=== PATIENT | female | born 1965 | race Caucasian/White ===

== ENCOUNTER 2018-09-08 15:18 | Observation (INO) ==
[2018-09-08] MEDS ORDERED: SODIUM CHLORIDE 0.9% INJ PRN (17:28)
[2018-09-08 17:58] LABS: BASO# 0.03 X1000 (0.0-0.2); BASO% 0.4 % (0.0-0.8); EOS# 0.34 X1000 (0.0-0.7); EOS% 4.4 % (0.0-10.0); HEMATOCRIT 34.3 % (37.0-47.0); HEMOGLOBIN 10.8 g/dL (12.0-16.0); LYMPH# 1.81 X1000 (1.2-3.4); LYMPH% 23.4 % (20.5-51.1); MCH 26.7 PG (27-31); MCHC 31.5 g/dL (33-37); MCV 84.9 FL (81-99); MONO# 0.55 X1000 (0.11-0.59); MONO% 7.1 % (1.7-9.3); MPV 8.9 FL (7.4-10.4); NEUT% 64.7 % (42.2-75.2); PLT 222 X1000 (130-400); RBC 4.04 XMIL (4.2-5.4); WBC 7.73 X1000 (4.8-10.8)
[2018-09-08 18:16] LABS: AGAP 15; ALB/GLOB RATIO 1.7; ALBUMIN 4.1 g/dL (3.5-5.0); ALKALINE PHOSPHATASE 89 U/L (32-104); AMYLASE 46 U/L (20-200); BUN 18 mg/dL (8-22); CHLORIDE 105 mmol/L (98-107); COSMO 285; CREATININE 0.7 mg/dL (0.5-0.9); ESTIMATED GFR > 60; GLUCOSE 105 mg/dL (70-104); GOT 46 U/L (10-30); GPT 26 U/L (10-36); MAGNESIUM 1.8 mg/dL (1.5-2.7); POTASSIUM 3.3 mmol/L (3.5-5.1); SODIUM 142 mmol/L (136-145); TCO2 22 mmol/L (25-35); TOTAL BILIRUBIN 0.26 mg/dL (0.20-1.00); TOTAL PROTEIN 6.5 g/dL (6.3-8.3)
[2018-09-08] MEDS: NS 1,000 ML IV SCH (18:49)
[2018-09-08] MEDS: PROTONIX IV SCH (18:50)
[2018-09-08] MEDS: DEMEROL IV PRN (18:52)
[2018-09-08] MEDS: PHENERGAN IV PRN (18:52)
[2018-09-08] MEDS ORDERED: VENTOLIN HFA INH PRN (21:13)
--- NOTE | 2018-09-08 21:49 | HISTORY AND PHYSICAL ---
CHIEF COMPLAINT: Two-week history of nausea, vomiting, abdominal pain, diarrhea. HISTORY OF PRESENT ILLNESS: She is a 52-year-old white female who came to my office after 1 year, basically came in with above symptoms. The patient was profoundly dehydrated, unable to get an IV. Basically admitted to the hospital for IV fluids and IV PPI. Apparently, patient called Dr. Waldron, and he said go to the emergency room. PAST MEDICAL HISTORY: Interstitial cystitis, metabolic syndrome, seizure, migraine headaches, GERD, osteoarthritis, B12 deficiency, hypothyroidism, allergic rhinitis. PAST SURGICAL HISTORY: Gastric sleeve, sinus surgery, tonsillectomy, appendectomy, cholecystectomy, complete hysterectomy, bilateral hip replacement, bilateral knee arthroplasty. MEDICINES: Listed in my office: Singulair 10 mg daily, Prevacid 30 daily, Keppra 1000 p.o. b.i.d., trazodone 150 at bedtime, ProAir as needed, Klonopin 0.5 daily, Spencer Thyroid 90 mg daily, Lexapro 20 daily, Symbicort 160/4.5 daily, B12 shots as needed, Aimovig 70 mg once a month for migraine prophylaxis. ALLERGIES: Bactrim and penicillin. SOCIAL HISTORY: for 38 years, 2 kids. Lives in [place]. 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 FAMILY HISTORY: Father is 75 years old, had a stroke. Mom is 69 with diabetes. Siblings: 3 sisters with joint disease and asthma. HEALTH MAINTENANCE: The patient never seen in my office since last year. COLL[facility] TURNER by Dr. Shelton. Colonoscopy in [address] Waldron. She had a complete hysterectomy, health maintenance. REVIEW OF SYSTEMS: HEENT: No headache. No vision problem. No earache. No sore throat. Neck: No goiter. No lymphadenopathy. No bruit. Cardiopulmonary: No chest pain, shortness of breath, PND, orthopnea. Gastrointestinal: Upper abdominal pain, nausea, vomiting, diarrhea. Genitourinary: No history of hesitancy, dysuria, frequency. Musculoskeletal: No swelling of legs. Chronic joint pains. Neurologic: No focal symptoms or weakness. PHYSICAL EXAMINATION: VITAL SIGNS: Temperature is 97.7 degrees, pulse is 70, blood pressure 115/57, 5 feet 7, 210 pounds. HEENT: Atraumatic, normocephalic. Pupils equal, reactive to light. TMs are normal. Nose and throat within normal limits. NECK: Supple. No lymphadenopathy. No goiter. CHEST: Bilateral air entry. CARDIOVASCULAR: Heart sounds are regular. ABDOMEN: Belly is soft, obese, nontender. Good bowel sounds and no signs of peritonitis. No neurological deficits. INVESTIGATIONS: CBC: White cell count 7.7, hematocrit 34, platelets 222,000. SMA 7: Sodium 142, potassium 3.3, chloride 105, glucose of 105. LFTs were normal. Amylase was normal. ASSESSMENT AND PLAN: 1. A 52-year-old white female admitted to the hospital with observation, nausea, vomiting, diarrhea for 2 weeks, dehydration by clinical exam, IV fluids, Demerol and Zofran and hypokalemia, replace the potassium. 2. Reconcile home medications, and we will follow up. If things will not get better, the patient is going to see Dr. Waldron. cc: Michele Ibrahim MD MTDD
[2018-09-08] MEDS: POTASSIUM CHLORIDE 20 MEQ/SWI 20 MEQ/100 ML IVPB IV SCH (22:24)
[2018-09-08] MEDS: DESYREL PO SCH (22:55)
[2018-09-08] MEDS: CARAFATE PO SCH (22:56)
[2018-09-08] MEDS: KEPPRA PO SCH (22:56)
[2018-09-08] MEDS: NEURONTIN PO SCH (22:56)
[2018-09-09] MEDS: LEVSIN-SL SL SCH ×6 (02:06→21:37)
[2018-09-09] MEDS: POTASSIUM CHLORIDE 20 MEQ/SWI 20 MEQ/100 ML IVPB IV SCH (02:07)
[2018-09-09] MEDS: PHENERGAN IV PRN ×4 (02:07→19:02)
[2018-09-09] MEDS: DEMEROL IV PRN ×5 (02:08→21:38)
[2018-09-09] MEDS: SODIUM CHLORIDE 0.9% INJ SCH ×3 (02:16→17:04)
[2018-09-09] MEDS: NS 1,000 ML IV SCH (05:04)
[2018-09-09] MEDS ORDERED: THYROID PO SCH (07:00)
[2018-09-09] MEDS ORDERED: SYMBICORT 160/4.5 MICROGM INHALER INH SCH (07:30)
[2018-09-09] MEDS: LEXAPRO PO SCH (09:11)
[2018-09-09] MEDS: NEURONTIN PO SCH ×3 (09:11→21:37)
[2018-09-09] MEDS: CARAFATE PO SCH ×2 (09:11→21:37)
[2018-09-09] MEDS: KEPPRA PO SCH ×2 (09:11→21:37)
[2018-09-09] MEDS: ESTRACE PO SCH (09:12)
[2018-09-09] MEDS: SINGULAIR PO SCH (09:12)
[2018-09-09] MEDS: KLONOPIN PO SCH ×2 (09:12→21:37)
--- NOTE | 2018-09-09 16:52 | PROGRESS NOTE ---
DATE: 09/09/2018 SUBJECTIVE: The patient complains of diarrhea, nausea/vomiting, abdominal pain. Symptoms are out of proportion. Complains of dysuria, interstitial cystitis acting up. OBJECTIVE: Temperature is 97 degrees, vitals are stable.HEENT: Within normal limits. Neck is supple, no lymphadenopathy. Chest is clear. Heart sounds are regular. Belly is soft, nontender. No obvious deficits. INVESTIGATION: Potassium is low. ASSESSMENT AND PLAN: 1. Diarrhea. Follow up on stool cultures. 2. Interstitial cystitis, dysuria. Pyridium. 3. Intravenous fluids and intravenous proton pump inhibitor. 4. Hypokalemia. Replace the potassium. Will follow up with Dr. Waldron. If she is stable, we will discharge this afternoon or in the morning. Advance the diet. Continue present treatment. LEVEL OF DOCUMENTATION: 25 minutes. cc: Michele Ibrahim MD
[2018-09-09] MEDS: PYRIDIUM PO PRN ×2 (16:59→23:02)
[2018-09-09] MEDS: PROTONIX IV SCH (17:04)
[2018-09-09] MEDS: DESYREL PO SCH (21:37)
[2018-09-10] MEDS: DEMEROL IV PRN ×2 (00:51→06:37)
[2018-09-10] MEDS: PHENERGAN IV PRN ×2 (00:52→06:37)
[2018-09-10] MEDS: LEVSIN-SL SL SCH ×3 (00:52→08:26)
[2018-09-10] MEDS ORDERED: THYROID PO SCH (07:00)
[2018-09-10] MEDS: NS 1,000 ML IV SCH (07:02)
[2018-09-10 07:40] VITALS: BP 122/62
[2018-09-10] MEDS: NEURONTIN PO SCH (08:26)
[2018-09-10] MEDS: ESTRACE PO SCH (08:26)
[2018-09-10] MEDS: KLONOPIN PO SCH (08:26)
[2018-09-10] MEDS: CARAFATE PO SCH (08:26)
[2018-09-10] MEDS: SINGULAIR PO SCH (08:27)
[2018-09-10] MEDS: KEPPRA PO SCH (08:27)
[2018-09-10] MEDS: LEXAPRO PO SCH (08:27)
--- NOTE | 2018-09-11 19:19 | DISCHARGE SUMMARY ---
ADMISSION DATE: 09/08/2018 DISCHARGE DATE: 09/10/2018 DISCHARGING DIAGNOSES: Intractable abdominal pain, nausea, vomiting, diarrhea, etiology to be determined. SECONDARY DIAGNOSES: 1. Interstitial cystitis. 2. Metabolic syndrome. 3. Seizure disorder. 4. Chronic migraine headaches. 5. Acid reflux disease. 6. Osteoarthritis pains in both knees. 7. B12 deficiency. 8. Hypothyroidism. 9. Allergic rhinitis. BRIEF HISTORY: Please see the H and P that was done on 09/08/2018. In brief, she is 52 year white female with chronic pain syndrome with headaches, interstitial cystitis, and abdominal pain. Basically, admitted to the hospital for observation. The patient was profoundly dehydrated by clinical exam. Admitted to the hospital for observation. HOSPITAL COURSE: The patient was given IV fluids, IV Demerol. Complained of dysuria from interstitial cystitis pain, and Pyridium was given. Potassium was low which was replaced. The patient had gallbladder surgery done, and symptoms are out of proportion to the objective findings. Patient is going to see Dr. Waldron for EGD. Patient was discharged home in stable condition. LABORATORY DATA: White cell count 7.7, hematocrit 34, platelets 222,000. SMA- 7: Sodium 142, potassium 3.3, chloride 105, BUN 18, creatinine 0.7, glucose 105. LFTs were normal. Amylase was normal. DISCHARGE MEDICATIONS: Alton Thyroid 75 mg daily. Lexapro 20 daily. Keppra 1000 p.o. b.i.d. Trazodone 300 at bedtime. Gabapentin 300 t.i.d. Symbicort 160/4.5 one puff b.i.d. Klonopin 0.5 p.o. b.i.d. Estradiol 2 mg daily. Singular 10 daily. ProAir as needed. Carafate 1 g b.i.d. Prevacid 30 mg daily high. Hyoscyamine sublingual liquid 0.125 mg every 4 hours as needed. DISCHARGE INSTRUCTIONS: Follow up with Dr. Waldron for EGD as well as in my office. cc: MD Pete Garrison MD MTDD
== END 2018-09-10 10:02 | disposition home or self-care (01) ==
LOC: DIRADM 15:18 → INTOOBSV 15:18 → 3N 16:59
PROVIDERS: ADMIT Internal Medicine; ATTEND Internal Medicine
CPT/HCPCS: 80053; 82150; 83735; 85025; 94640; 94761; A9270; C9113; J2175; J2550; J3480; J7030; S0164

== ENCOUNTER 2018-12-26 11:45 | Observation (INO) ==
[~2018-12-26 11:45] MED LIST: PROTONIX IV SCH; SODIUM CHLORIDE 0.9% INJ SCH
[2018-12-26] MEDS: DUONEB (A & A) INH PRN ×3 (12:23→21:25)
--- NOTE | 2018-12-26 12:25 | EKG Report ---
Test Performed on : 12/26/2018 12:12:41 PM Test Reason : chest pain Blood Pressure : / mmHG Vent. Rate : 083 BPM Atrial Rate : 083 BPM P-R Int : 116 ms QRS Dur : 094 ms QT Int : 394 ms P-R-T Axes : 018 004 -01 degrees QTc Int : 462 ms Normal sinus rhythm. Nonspecific ST and T wave abnormality Prolonged QT Abnormal ECG When compared with ECG of 25-DEC-2018 09:23, (Unconfirmed) Minimal criteria for Anterior infarct are no longer present Confirmed by Cruz Sotelo MD ([id number]) on 12/28/2018 9:08:11 PM
[2018-12-26] MEDS: LEVAQUIN 500 MG/D5W 500 MG/100 ML IVPB IV SCH (12:26)
[2018-12-26] MEDS: NEXIUM IV SCH (12:27)
[2018-12-26] MEDS: SODIUM CHLORIDE 0.9% INJ SCH (12:27)
[2018-12-26] MEDS: NS 1,000 ML IV SCH ×2 (12:27→22:51)
[2018-12-26 12:52] LABS: ALLEN TEST YES; BE 0.7 mmoll (-3.0-3.0); BLOOD TYPE ARTERIAL; HCO3-(ACT) 25.4 mmoll (20.0-26.0); O2(CT) 15.2 mL/dL (15.0-23.0); PCO2(98.6) 40 mmHg (35-45); PO2(98.6) 86 mmHg (60-100); SAMPLE BLOOD; SAO2 95.7 % (95.0-100.0); THB 11.3 g/dL (11.5-17.4); pH(98.6) 7.41 (7.35-7.45)
[2018-12-26 12:53] LABS: MODALITY ROOM AIR
[2018-12-26] MEDS: MORPHINE IV PRN ×3 (13:57→22:48)
--- NOTE | 2018-12-26 14:02 | Diag Imaging Result Doc PS360 ---
CT ANGIOGRM PULMONARY ARTERIES - 12/26/2018 INDICATION: SOB TECHNIQUE: Axial CT images were obtained after administering intravenous contrast. Coronal MIP images were generated. COMPARISON: 12/25/2018 FINDINGS: There is no pulmonary embolism. Heart and great vessels are normal. The lungs are clear. Airways are clear. There is severe right hemidiaphragm elevation. This has been present on previous exams. IMPRESSION: Severe right hemidiaphragm elevation. No acute disease. This exam was performed using automated exposure control, adjustment of mA or kV according to patient size, and/or use of iterative reconstruction technique Electronically signed by Arley Dockery 12/26/2018 2:00 PM
[2018-12-26] MEDS: PHENERGAN IV PRN ×3 (14:03→22:49)
[2018-12-26] MEDS: SODIUM CHLORIDE 0.9% INJ PRN ×2 (17:53→22:49)
[2018-12-26] MEDS ORDERED: VENTOLIN HFA INH PRN (19:12)
[2018-12-26] MEDS: KEPPRA PO SCH (21:36)
[2018-12-26] MEDS: REMERON PO SCH (21:36)
[2018-12-26] MEDS: KLONOPIN PO SCH (21:36)
[2018-12-27] MEDS: DUONEB (A & A) INH PRN ×2 (03:44→11:42)
[2018-12-27] MEDS: MORPHINE IV PRN (04:32)
[2018-12-27] MEDS: PHENERGAN IV PRN ×4 (04:32→21:24)
[2018-12-27] MEDS: SODIUM CHLORIDE 0.9% INJ PRN (04:32)
[2018-12-27] MEDS: DEXILANT PO SCH (06:28)
--- NOTE | 2018-12-27 07:11 | HISTORY AND PHYSICAL ---
CHIEF COMPLAINT: Shortness of breath, swelling of feet. HPI: She is a 53-year-old white female was seen in our clinic with above symptoms. Apparently, she was seen multiple times in the emergency room prior to this visit. She has been on hormone replacement therapy. Positive D-dimer. Pulse oximetry reported 80% and patient has been admitted directly for rule out pulmonary embolism. As a result, admitted to the hospital for observation. PAST MEDICAL HISTORY: 1. Interstitial cystitis. 2. Metabolic syndrome. 3. Seizure disorder. 4. Migraine headaches. 5. Acid reflux disease. 6. Osteoarthritis, B12 deficiency. 7. Hypothyroidism. 8. Allergic rhinitis. PAST SURGICAL HISTORY: Gastric sleeve surgery, sinus surgery, tonsillectomy, appendectomy, cholecystectomy, complete hysterectomy, bilateral hip replacement, bilateral total knee arthroplasty. MEDICATIONS: Singulair 10 daily, Prevacid 30 mg daily, Keppra 1000 p.o. b.i.d., trazodone 150 at bedtime, ProAir as needed, Klonopin 0.5 mg daily, [place] Thyroid 90 mg daily, Lexapro 20 daily, Symbicort 160/4.5 daily, B12 shot as needed, Aimovig 70 mg once a month for migraine prophylaxis. ALLERGIES: Reported to Bactrim, penicillin, scopolamine, codeine. SOCIAL HISTORY: for 30 years, 2 children. Lives in [place]. 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 FAMILY HISTORY: Father is 75 years old, had a stroke. Mom is 69 with diabetes. Siblings sister had joint disease and asthma. 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 Shelton, colonoscopy [address] Waldron. REVIEW OF SYSTEMS: HEENT: No headache, no vision problem, no earache, no sore throat. Neck: No goiter. No lymphadenopathy, no bruit Cardiopulmonary: Shortness of breath and wheezing and swelling of legs. No PND, no orthopnea. GI: No nausea, vomiting, abdominal pain. Seen by 2 different gastroenterologists workup is negative. : Chronic bladder pain due to IC and no swelling of legs, no joint pains. Neuro: No focal symptoms or weakness. OBJECTIVE: Temperature is 97 degrees. She is extremely apprehensive, tachycardic, blood pressure 133/79, 5 feet 6, 208 pounds.HEENT: Atraumatic, normocephalic. Pupils equal, react to light. TMs are normal. Nose and throat within normal limits. Neck: Supple. No lymphadenopathy. No goiter. Chest: Bilateral air entry. Scattered wheezing. Heart: Sounds are regular. No murmur. Belly: Soft, obese, nontender. Good bowel sounds. No signs of peritonitis. No peripheral edema, cyanosis. No obvious neurological deficits. INVESTIGATIONS: Reported ABG pH is 7.41, pCO2 40, PO2 86 on room air. ProBNP was normal. D- dimer was reported positive. CBC was yesterday white cell count 5.4, hematocrit 36, platelets 226,000. Yesterday, he was seen in the ER. SMA 7 is normal. ASSESSMENT AND PLAN: A 53-year-old white female admitted to the hospital seen several times shortness of breath, hypoxemia on pulse oximetry, positive D-dimer on hormone replacement. Came in with observation for rule out pulmonary embolism. Symptoms are out of proportion to the objective findings and based on the CT further recommendations will be followed and continue IV fluids and reconcile home medications and will follow up. DVT, GI Prophylaxis with Lovenox and PPI respectively. cc: Michele Ibrahim MD
[2018-12-27 07:24] LABS: BASO# 0.04 X1000 (0.0-0.2); BASO% 0.8 % (0.0-0.8); EOS# 0.25 X1000 (0.0-0.7); EOS% 4.7 % (0.0-10.0); HEMATOCRIT 34.8 % (37.0-47.0); HEMOGLOBIN 10.9 g/dL (12.0-16.0); LYMPH# 2.38 X1000 (1.2-3.4); LYMPH% 44.7 % (20.5-51.1); MCHC 31.3 g/dL (33-37); MCV 98.9 FL (81-99); MONO# 0.38 X1000 (0.11-0.59); MONO% 7.1 % (1.7-9.3); MPV 9.4 FL (7.4-10.4); NEUT# 2.27 X1000 (1.4-6.5); NEUT% 42.7 % (42.2-75.2); PLT 190 X1000 (130-400); RBC 3.52 XMIL (4.2-5.4); RDW 14.5 % (11.5-14.5); WBC 5.32 X1000 (4.8-10.8)
[2018-12-27 07:42] LABS: AGAP 10; BUN 19 mg/dL (8-22); CHLORIDE 106 mmol/L (98-107); COSMO 285; CREATININE 0.6 mg/dL (0.5-0.9); ESTIMATED GFR > 60; GLUCOSE 99 mg/dL (70-104); POTASSIUM 3.5 mmol/L (3.5-5.1); SODIUM 142 mmol/L (136-145); TCO2 26 mmol/L (25-35)
[2018-12-27] MEDS: DEMEROL IV PRN ×3 (09:05→21:23)
[2018-12-27] MEDS: KLONOPIN PO SCH ×2 (09:06→21:23)
[2018-12-27] MEDS: PYRIDIUM PO SCH ×3 (09:06→17:08)
[2018-12-27] MEDS: THYROID PO SCH (09:06)
[2018-12-27] MEDS: SINGULAIR PO SCH (09:07)
[2018-12-27] MEDS: ESTRACE PO SCH (09:07)
[2018-12-27] MEDS: KEPPRA PO SCH ×2 (09:08→21:23)
[2018-12-27] MEDS: ICAR-C PO SCH (09:08)
[2018-12-27] MEDS: LEXAPRO PO SCH (09:08)
[2018-12-27] MEDS: NEURONTIN PO SCH ×3 (09:08→17:08)
[2018-12-27] MEDS: SYMBICORT 160/4.5 MICROGM INHALER INH SCH (11:51)
[2018-12-27] MEDS: NEXIUM IV SCH (12:08)
[2018-12-27] MEDS: SODIUM CHLORIDE 0.9% INJ SCH (12:08)
[2018-12-27] MEDS: LEVAQUIN 500 MG/D5W 500 MG/100 ML IVPB IV SCH (12:08)
[2018-12-27] MEDS: NS 1,000 ML IV SCH (13:52)
--- NOTE | 2018-12-27 21:09 | PROGRESS NOTE ---
DATE: 12/27/2018 SUBJECTIVE: The patient still complains of some shortness of breath and wheezing. OBJECTIVE: Vital signs: Temperature is 97. Vitals are stable. HEENT: Within normal limits. Neck: Supple. Chest: Clear. Cardiovascular: Heart sounds are regular. Abdomen: Belly is soft, nontender. Good bowel sounds. Neurological: No neurological deficits. LABORATORY DATA: CBC: White cell count 5.3, hematocrit 34.8, platelets 193,000. ABG on pH is 7.041, pCO2 40, pO2 86. SMA 7 is normal. Magnesium 2. Cardiac enzymes and proBNP were normal. CT pulmonary angiogram was negative. Elevation of right hemidiaphragm. ASSESSMENT AND PLAN: Shortness of breath, probably elevation of right hemidiaphragm, etiology to be determined. All the workup was negative. EKG, cardiac workup, PE were negative. Continue IV fluids, incentive spirometry and oxygen level is normal. If she continues to have shortness of breath, we will consider pulmonary function test as an outpatient. Continue present treatment, and we will attempt to discharge in the morning and discontinue all the laboratory workup serially. LEVEL OF DOCUMENTATION: 25 minutes. cc: Michele Ibrahim MD
[2018-12-27] MEDS: REMERON PO SCH (21:23)
[2018-12-28] MEDS: DUONEB (A & A) INH PRN ×2 (00:43→05:52)
[2018-12-28] MEDS: NS 1,000 ML IV SCH (01:01)
[2018-12-28] MEDS: DEXILANT PO SCH (06:01)
[2018-12-28] MEDS: DEMEROL IV PRN ×2 (06:02→12:02)
[2018-12-28] MEDS: PHENERGAN IV PRN ×2 (06:02→12:01)
[2018-12-28] MEDS: THYROID PO SCH (09:36)
[2018-12-28] MEDS: PYRIDIUM PO SCH ×2 (09:37→13:45)
[2018-12-28] MEDS: KLONOPIN PO SCH (09:37)
[2018-12-28] MEDS: KEPPRA PO SCH (09:37)
[2018-12-28] MEDS: ICAR-C PO SCH (09:37)
[2018-12-28] MEDS: LEXAPRO PO SCH (09:38)
[2018-12-28] MEDS: NEURONTIN PO SCH ×2 (09:38→13:45)
[2018-12-28] MEDS: SINGULAIR PO SCH (09:38)
[2018-12-28] MEDS: ESTRACE PO SCH (09:38)
[2018-12-28 11:12] VITALS: BP 107/52
[2018-12-28] MEDS: SYMBICORT 160/4.5 MICROGM INHALER INH SCH (11:37)
[2018-12-28] MEDS: SODIUM CHLORIDE 0.9% INJ PRN (12:02)
[2018-12-28] MEDS: NEXIUM IV SCH (12:02)
[2018-12-28] MEDS: LEVAQUIN 500 MG/D5W 500 MG/100 ML IVPB IV SCH (13:45)
--- NOTE | 2018-12-29 05:31 | DISCHARGE SUMMARY ---
ADMISSION DATE: 12/26/2018 DISCHARGE DATE: 12/28/2018 DISCHARGING DIAGNOSIS: Shortness of breath due to Pickwickian syndrome. SECONDARY DIAGNOSES: 1. Chronic interstitial cystitis. 2. Metabolic syndrome. 3. Seizure disorder. 4. Migraine headache. 5. Acid reflux disease. 6. B12 deficiency. 7. Osteoarthritis. 8. Hypothyroidism. 9. Allergic rhinitis. BRIEF HISTORY: Please see the H and P that was done on 12/26/2018. In brief, she is a 53-year- old white female that was admitted to the hospital with shortness of breath, cough, and wheezing. The patient was treated several times in the ER, and failed to improve. She was admitted directly from our clinic with positive D-dimer. Pulse oximetry was low. Symptoms are out of proportion to the objective findings. HOSPITAL COURSE: CT pulmonary angiogram was negative for pulmonary embolism, and some elevation of right hemidiaphragm. The patient was given incentive spirometry. Blood gases and pulse oximetry did not qualify for home oxygen. The rest of the hospital course was uneventful. LABORATORY: CBC: White cell count 5.3, hematocrit 34.8, and platelets 190,000. ABG: pH is 7.41, pCO2 40, PO2 86 on 21%. Sodium 142, potassium 3.5, chloride 106, BUN 19, creatinine 0.6 glucose 99, calcium 8, and magnesium 2. Cardiac enzymes and proBNP were normal. Pulmonary arteriogram severe right hemidiaphragm elevation. No acute disease. Findings were reassuring to the patient and will do outpatient pulmonary function tests completely for evaluation of shortness of breath. MEDICATIONS: Continue home medicines as follows: 1. [place] Thyroid 70 mg daily. 2. Lexapro 20 mg daily. 3. Keppra 1000 p.o. b.i.d. 4. Gabapentin 300 t.i.d. 5. Symbicort 160/45 1 puff p.o. b.i.d. 6. Klonopin 1 mg b.i.d. 7. Estradiol 10 mg daily. 8. Singulair 10 daily. 9. Pyridium 200 t.i.d. 10. Dexilant 60 daily, 11. Icar C Plus 1 tablet daily, 12. Remeron 30 at bedtime. 13. Ventolin HFA q.6h as needed. DISCHARGE INSTRUCTIONS: We will evaluate outpatient for asthma workup, and will follow up on pulmonary function tests. Follow up in my office in 10 days. cc: Michele Ibrahim MD
[2018-12-29] MEDS ORDERED: NEXIUM PO SCH (07:00)
== END 2018-12-28 15:35 | disposition home or self-care (01) ==
LOC: DIRADM → 3N 11:45
PROVIDERS: ADMIT Internal Medicine; ATTEND Internal Medicine
CPT/HCPCS: 71275; 80048; 82550; 82805; 83735; 83880; 84484; 85025; 93005; 93010; 94640; 94761; 94799; A9270; J1956; J2175; J2270; J2550; J7030; Q9967